=== PATIENT | female | born 1955 | race African-American/Black ===

== ENCOUNTER 2016-12-06 18:06 | Inpatient (IN) | payer MEDICARE ==
[~2016-12-06] VITALS: Ht 165.1 cm; Wt 81.0 kg
[~2016-12-06 18:06] MED LIST: BAYER CHEWABLE81 MG PO; COREG12.5 MG PO; HYDROCODONE-APA1 TAB PO; NORVASC10 MG PO; RENVELA800 MG PO; ZOCOR10 MG PO
--- NOTE | 2016-12-06 19:03 | NUR ---
1845-TO ROOM IN WHEELCHAIR A DIRECT ADMIT WITH C. DIFF. PLACED IN ENTERIC ISOLATION. LEFT AVF WITH + BRUIT AND THRILL. DIALYSIS ON T, TH, SAT. CLEANED UP FROM LOOSE STOOL. WILL ADMIT.
[2016-12-06] MEDS ORDERED: METOPROLOL TART25 MG PO (19:08)
[2016-12-06] MEDS ORDERED: TUMS500 MG PO (19:09)
[2016-12-06] MEDS ORDERED: FLAGYL500 MG PO (19:10)
[2016-12-06 19:17] LABS: BASOPHILS 0.4 % (0.0-2.0); EOSINOPHILS 0.9 % (0-7); HEMATOCRIT 31.8 % (36.0-48.0); HEMOGLOBIN 11.5 g/dL (12-16); IMMATURE GRANULOCYTES 0.5 % (0-5); MCH 26.3 pg (26.0-34.0); MCHC 36.2 g/dL (31.0-37.0); MCV 72.6 fL (80.0-100.0); MONOCYTES 13.1 % (2-11); NEUTROPHILS 72.1 % (40-80); RBC 4.38 10x6/uL (4.00-5.40); RDW 14.2 % (11.5-14.5); WBC 11.4 10x3/uL (4.8-10.8)
[2016-12-06 19:31] LABS: PLATELET COUNT 347 10x3/uL (130-400)
[2016-12-06 19:40] LABS: ALBUMIN 2.7 g/dL (3.4-5.0); ANION GAP 20.5 mmol/L (8-16); BILIRUBIN - TOTAL 0.51 mg/dL (0.2-1.3); CALCIUM 8.3 mg/dL (8.5-10.1); CARBON DIOXIDE 21.3 mmol/L (21.0-32.0); MAGNESIUM - SERUM 2.5 mg/dL (1.8-2.4); POTASSIUM - SERUM 3.8 mmol/L (3.5-5.1); PROTEIN - SERUM 7.1 g/dL (6.4-8.2)
[2016-12-06 19:53] LABS: PHOSPHOROUS 9.2 mg/dL (2.5-4.9)
[2016-12-07 00:41] VITALS: BP 147/68; BMI 28.2
--- NOTE | 2016-12-07 02:49 | NUR ---
NURSE ROUNDS 21:00 12/06/16 - PT JUST ARRIVED A DIRECT ADMIT, AWAKE, ALERT, ORIENTED. PT IS STILL HAVING UNCONTROLLED DIARRHEA R/T C-DIFF INFECTION. PT DURING PTS HEALTH HX, PT DID STATE THAT SHE HAS BEEN EXPOSED TO HEPATITIS AND HAS BUILT IMMUNITY. PT ALSO STATES SHE WAS RECENTLY TX FOR TB, DID TAKE RIFAMPIN X 4 MONTHS AND COMPLETED HER TX IN 06/05. PT DENIES ANY ACUTE NEEDS. I CALLED SUNITA MENEZES, NURSE PRACTIONER PHOTOENGRAVING APPRENTICE FOR RENAL, WHO WANTED TO HOLD ALL HOME MEDICATIONS UNTIL FURTHER EVALUATION. IV SITED TO RIGHT FOREARM, PT DENIES ANY ACUTE NEEDS. CONTINUE TO MONITOR CLOSELY.
--- NOTE | 2016-12-07 04:21 | NUR ---
PT HAS HAD SEVERAL BOUTS OF BOWEL INCONTINENCE, REMAINS IN NO ACUTE DISTRESS. CONTINUE TO MONITOR CLOSELY.
--- NOTE | 2016-12-07 07:43 | NUR ---
AM ROUNDING- RECEIVED REPORT FROM DIETARY COOK NURSE LEOBARDO BLANDON. PT IS CURRENTLY LAYING IN BED WITH HOB ELEVATED AT 40 DEGREES WITH EYES OPEN RESTING. IN ENTERIC ISOLATION FOR C.DIFF. LEFT ARM RESERVE FOR AVF. 22G IV SEEN TO RIGHT FOREARM WITH 1/2 NS RUNNING AT KVO (20CC/HR). ON 02 AT 2L VIA NC. NO MONITOR. PT IS VERY WEAK. PT STATES TURNER LOU IS FINDING HER A FAN. NO NEED AT CURRENT TIME. WILL CONTINUE TO MONITOR AND CONTINUE WITH PLAN OF CARE.
[2016-12-07 07:55] VITALS: BP 131/53
[2016-12-07 11:29] VITALS: BP 140/57
[2016-12-07 13:10] VITALS: Ht 165.1 cm; Wt 81.0 kg
--- NOTE | 2016-12-07 13:24 | NUR ---
DIALYSIS COORDINATOR: PATHWAYS: [facility]. GERONIMO FERNANDEZ.
[2016-12-07 15:15] VITALS: BP 162/83
--- NOTE | 2016-12-07 16:26 | NUR ---
SCD'S ON BILATERAL LE
--- NOTE | 2016-12-07 18:28 | NUR ---
PT LAYING IN BED ON BACK WITH EYES OPEN RESTING. PT IS INCONTINENT OF STOOL (IN ISOLATION FOR C.DIFF). CHANGED PTS LINEN. WILL CONTINUE TO MONITOR.
[2016-12-07 19:00] VITALS: BP 182/77
--- NOTE | 2016-12-07 20:11 | NUR ---
ROUNDS, PT BEING GIVEN BATH PER CNAS X 2. NO DISTRESS. CPOC. SEE ASSESSMENT.
--- NOTE | 2016-12-07 21:30 | NUR ---
RESTING. AWAKENED EASILY. TOOK PM MEDS, QUESTRAN/FLAGYL. VERY PLEASANT AND COOPERATIVE. KNOWLEDGEABLE ABOUT DISEASE PROCESSES.
[2016-12-08] VITALS: BP 155/72
--- NOTE | 2016-12-08 00:24 | NUR ---
TELEMETRY STARTED. . PT IS CONFUSED. DISORIENTED TO PLACE/SITUATION. SETTLED HIM INTO HIS BED AND TURNED ON BED ALARM. WILL MONITOR.
--- NOTE | 2016-12-08 00:31 | NUR ---
PT RESTING IN BED. SLOW RISE BEING NOTED IN TEMP. EARLIER 99.0 AND NOW 100.0. SPOKE WITH PATIENT THAT IF THE NEXT CHECK IS EVEN HIGHER, WILL OBTAIN BLOOD CULTURES. PT VERY UNDERSTANDING. WILL MONITOR.
[2016-12-08 04:00] VITALS: BP 185/81
--- NOTE | 2016-12-08 07:15 | NUR ---
RECEIVED PATIENT LAYING IN BED. ALERT AND ORIENTED. PATIENT ON CONTACT ISOLATION FOR C DIFF. CONTINUES HAVING FREQUENT LOOSE STOOLS. BRUIT AND THRILL PRESENT PER LEFT AV FISTULA. IV 1/2 NS INFUSING AT KVO PE RIGHT FOREARM. NO C/O VOICED. DENIES NEEDS. CALL LIGHT WITHIN REACH.
[2016-12-08 08:15] VITALS: BP 147/62
--- NOTE | 2016-12-08 10:05 | NUR ---
Nutrition follow-up: Diet advanced to renal ADA with Nepro BID PO intake 100% of some meals Labs reviewed +BM loose PO intake is good at this time. RDN following.
[2016-12-08 11:10] LABS: BASOPHILS 0.5 % (0.0-2.0); EOSINOPHILS 1.6 % (0-7); HEMOGLOBIN 10.6 g/dL (12-16); IMMATURE GRANULOCYTES 0.7 % (0-5); LYMPHOCYTES 22.5 % (15-50); MCH 25.8 pg (26.0-34.0); MCHC 35.3 g/dL (31.0-37.0); MEAN PLATELET VOLUME 10.1 fL (7.4-10.4); MONOCYTES 9.4 % (2-11); NEUTROPHILS 65.3 % (40-80); PLATELET COUNT 334 10x3/uL (130-400); RBC 4.11 10x6/uL (4.00-5.40); RDW 14.3 % (11.5-14.5); WBC 10.3 10x3/uL (4.8-10.8)
[2016-12-08 11:32] LABS: ANION GAP 15.3 mmol/L (8-16); CALCIUM 7.5 mg/dL (8.5-10.1); CARBON DIOXIDE 25.1 mmol/L (21.0-32.0); POTASSIUM - SERUM 3.4 mmol/L (3.5-5.1)
[2016-12-08 11:33] LABS: CREATININE - SERUM 12.7 mg/dL (0.6-1.3)
[2016-12-08 12:10] VITALS: BP 152/72
--- NOTE | 2016-12-08 13:04 | NUR ---
C/O DRY NON-PRODUCTIVE COUGH. PRN ROBITUSSIN WITH CODIENE ADMINISTERED PER ORDERS.
--- NOTE | 2016-12-08 14:15 | NUR ---
ASSISTED TO BATHROOM. CONTINUES WITH LOOSE STOOLS.
[2016-12-08 16:00] VITALS: BP 146/67
--- NOTE | 2016-12-08 20:00 | NUR ---
ROUNDS, PT RESTING AND WATCHING TV. ALERT/ORIENTED. O2 @ 2L/NC WITH NONLABORED RESPIRATIONS. SEE SHIFT ASSESSMENT. CPOC.
[2016-12-08 20:13] VITALS: BP 165/77
[2016-12-09 02:00] VITALS: BP 140/76
[2016-12-09 04:46] LABS: BASOPHILS 0.3 % (0.0-2.0); EOSINOPHILS 2.6 % (0-7); HEMATOCRIT 29.7 % (36.0-48.0); HEMOGLOBIN 10.5 g/dL (12-16); IMMATURE GRANULOCYTES 0.6 % (0-5); MCHC 35.4 g/dL (31.0-37.0); MCV 73.5 fL (80.0-100.0); MEAN PLATELET VOLUME 9.9 fL (7.4-10.4); MONOCYTES 8.3 % (2-11); NEUTROPHILS 68.2 % (40-80); PLATELET COUNT 350 10x3/uL (130-400); RBC 4.04 10x6/uL (4.00-5.40); RDW 14.2 % (11.5-14.5)
[2016-12-09 05:06] LABS: ANION GAP 13.4 mmol/L (8-16); CALCIUM 8.1 mg/dL (8.5-10.1); CARBON DIOXIDE 26.6 mmol/L (21.0-32.0); CREATININE - SERUM 14.1 mg/dL (0.6-1.3); PHOSPHOROUS 7.3 mg/dL (2.5-4.9)
--- NOTE | 2016-12-09 07:49 | NUR ---
AM ROUNDS - PT IN BED RECIEVING DYALISIS. 2L O2 VIA NC. LEFT LOWER FA WITH AVF. RESERVE LEFT ARM. SCDS ON. PT IS ON OSOLATION FOR C-DIFF. PT STATES SHE IS DOING BETTER AND HAD NO INCONTINENT EPISODE LAST NIGHT. RIGHT FA, SL. NO NEEDS AT THIS TIME. WILL CONTINUE TO MONITOR.
[2016-12-09 08:14] VITALS: BP 138/73
--- NOTE | 2016-12-09 09:51 | NUR ---
HELD DEVAN STEEN, WILL GIVE AFTER PRIETO.
--- NOTE | 2016-12-09 11:19 | NUR ---
Mrs. Gracia had bedside hemodialysis today via her left lower arm av fistula from 0750 until 1050. Average blood flow was 350 mls/minute. Net fluid removed was 2000 mls. Post vital signs were: B/P:153/73, HR:73, Temp:98.8, Resps:18. No problems.
[2016-12-09 13:14] VITALS: BP 158/74
[2016-12-09 16:52] VITALS: BP 160/79
--- NOTE | 2016-12-09 16:58 | NUR ---
Patient Name: JONATHAN MARQUEZ Admission Status: Elective Accout number: [id number] Admission Date: 12-06-2016 : 1955 Admission Diagnosis:DIARRHEA, UNSPECIFIED Attending: LARON Current LOS: 3 Anticipated DC Date: 12-12-2016 Planned Disposition: Home Primary Insurance: MEDICARE A & B Discharge Planning Comments: CM MET WITH PATIENT REGARDING D/C NEEDS AND PLANS. PATIENT STATED SHE LIVES ALONE BUT HER SON AND HER ARE IN TOUCH DAILY. PATIENTS SON WILL DRIVE PATIENT HOME AT DISCHARGE. PATIENT STATED SHE IS INDEPENDENT WITH HER CARE AND HAS A SHOWER CHAIR AT HOME AND GLUCOMETER AND SHE CHECKS SUGAR EVERY OTHER DAY. PATIENT HAS DIALYSIS ON [id number] AT [facility] IN [place]. PATIENT DOES NOT WANT HOME HEALTH AT THIS TIME AND HAS NO OTHER NEEDS AT THIS TIME FOR DISCHARGE. CM WILL CONTINUE TO FOLLOW PATIENT WITH D/C NEEDS AND PLANS. PCP DR. SMITH ([place]) [facility] ([place]) N[place] SHERIDAN [phone] Hose Coupling Joiner: Leanna Crowe Is the patient Alert and Oriented? Yes 0 * How many steps to enter\exit or inside your home? 1 FLIGHT 0 * PCP DR. SMITH IN [place] 0 * Pharmacy [facility] 0 * Preadmission Environment Home Alone 0 * ADLs Independent 0 * Equipment Glucometer Shower Chair 0 * List name and contact numbers for known caregivers / representatives who currently or will assist patient after discharge: N[place]IA SHERIDAN [phone] * Community resources currently utilized None 0 * Additional services required to return to the preadmission environment? Yes 0 * Can the patient safely return to the preadmission environment? Yes 0 * Has this patient been hospitalized within the prior 30 days at any hospital? No 0 Grand Total: 0
--- NOTE | 2016-12-09 17:43 | NUR ---
PT IN BED. STATES SHE IS FEELING BETTER AND HAD A "FORMED STOOL" TODAY.
[2016-12-09 19:00] VITALS: BP 157/72
--- NOTE | 2016-12-09 19:15 | NUR ---
AWAKE ALERT TALKING ON PHONE. DENIES PAIN OR ANY NEEDS. IN CONTACT ISOLATION FOR C-DIF. STATED LAST BM WAS SOFT FORMED. IV IN FA INTACT SL. SCD'S ARE ON. CALL LIGHT IN REACH.
--- NOTE | 2016-12-09 21:50 | NUR ---
ADMIN SCHED MEDS WITH SIPS OF WATER. REQUESTED LIGHTS OFF TO SLEEP.
[2016-12-10] VITALS: BP 166/71
--- NOTE | 2016-12-10 04:00 | NUR ---
AWAKE WATCHING TV. DENIES PAIN OR ANY NEEDS.
[2016-12-10 04:26] VITALS: BP 162/77
[2016-12-10 04:54] LABS: BASOPHILS 0.4 % (0-2); HEMATOCRIT 28.8 % (36.0-48.0); HEMOGLOBIN 10.1 g/dL (12-16); IMMATURE GRANULOCYTES 0.4 % (0-5); LYMPHOCYTES 21.9 % (15-50); MCH 25.9 pg (26.0-34.0); MCHC 35.1 g/dL (31.0-37.0); MCV 73.8 fL (80.0-100.0); MEAN PLATELET VOLUME 10.2 fL (7.4-10.4); MONOCYTES 11.3 % (2-11); PLATELET COUNT 350 10x3/uL (130-400); RDW 14.3 % (11.5-14.5); WBC 10.5 10x3/uL (4.8-10.8)
[2016-12-10 05:17] LABS: ANION GAP 12.1 mmol/L (8-16); CARBON DIOXIDE 28.4 mmol/L (21.0-32.0); PHOSPHOROUS 5.6 mg/dL (2.5-4.9); POTASSIUM - SERUM 3.5 mmol/L (3.5-5.1)
[2016-12-10 05:21] LABS: CREATININE - SERUM 9.6 mg/dL (0.6-1.3)
--- NOTE | 2016-12-10 07:45 | NUR ---
AM ROUNDING- RECEIVED REPORT FROM FARM EQUIPMENT MECHANIC APPRENTICE NURSE KWESI. PT IS CURRENTLY SITTING UP IN BED WITH EYES OPEN STATING SHE IS DOING MUCH BETTER. PT STATES SHE HAS NOT HAD DIARRHEA. IN ENTERIC ISOLATION FOR C.DIFF. RESERVE LEFT ARM FOR AVF (PT DIALYZED YESTERDAY). ON 02 AT 2L VIA NC. NO MONITOR. SCDS ARE ON. PT IS ALERT AND ORIENTED. NO NEED AT CURRENT TIME. WILL CONTINUE TO MONITOR AND CONTINUE WITH PLAN OF CARE.
[2016-12-10 07:59] VITALS: BP 183/85
[2016-12-10 12:40] VITALS: BP 163/70
--- NOTE | 2016-12-10 15:21 | NUR ---
WEANED PTS O2 DOWN TO 1L VIA NC ORDERED (WAS AT 2L). WILL MONITOR PT AND WEAN TOLERATED. WILL CONTINUE TO MONITOR.
[2016-12-10 15:40] VITALS: BP 146/69
--- NOTE | 2016-12-10 17:03 | NUR ---
PT IS CURRENTLY SITTING UP IN BED WITH EYES OPEN EATING DINNER. DENIES ANY NEED AT CURRENT TIME. WILL CONTINUE TO MONITOR.
[2016-12-10 20:00] VITALS: BP 174/72
--- NOTE | 2016-12-10 21:31 | NUR ---
INITIAL ROUNDS COMPLETED AT 1915 HRS. PT DENIED ANY DISCOMFORT. ASSESSMENT COMPLETED AT 1944 HRS. VSS. LAVF WITH GOOD BRUIT AND THRILL. IV TI RHADN SL. LUNGS DIMINISHED IN BASES BILAT. 02 1LNC. PM MEDS GIVEN. PT CURRENTLY RESTING WITH EYES CLOSED. RESP EVEN AND REGULAR. SR UP X2, CALL LIGHT WITHIN REACH.
[2016-12-11] VITALS: BP 144/63
--- NOTE | 2016-12-11 00:04 | NUR ---
PT RESTING WITH EYES CLOSED. RESP EVEN AND REGULAR. SR UP X2, CALL LIGHT WITHIN REACH.
--- NOTE | 2016-12-11 01:41 | NUR ---
PT RESTING WITH EYES CLOSED. RESP EVEN AND REGULAR. SR UP X2, CALL LIGHT WITHIN REACH.
[2016-12-11 04:33] LABS: BASOPHILS 0.7 % (0-2); EOSINOPHILS 3.8 % (0-7); HEMATOCRIT 29.1 % (36.0-48.0); IMMATURE GRANULOCYTES 0.5 % (0-5); LYMPHOCYTES 23.5 % (15-50); MCH 25.6 pg (26.0-34.0); MCHC 34.4 g/dL (31.0-37.0); MCV 74.4 fL (80.0-100.0); MEAN PLATELET VOLUME 10.3 fL (7.4-10.4); MONOCYTES 9.4 % (2-11); NEUTROPHILS 62.1 % (40-80); PLATELET COUNT 391 10x3/uL (130-400); RBC 3.91 10x6/uL (4.00-5.40); RDW 14.4 % (11.5-14.5)
[2016-12-11 04:42] LABS: ANION GAP 13.5 mmol/L (8-16); CALCIUM 8.1 mg/dL (8.5-10.1); CARBON DIOXIDE 26.3 mmol/L (21.0-32.0); CREATININE - SERUM 10.9 mg/dL (0.6-1.3); PHOSPHOROUS 5.6 mg/dL (2.5-4.9); POTASSIUM - SERUM 3.8 mmol/L (3.5-5.1)
--- NOTE | 2016-12-11 05:00 | NUR ---
PT AWAKE; DENIES ANY DISCOMFORT. WILL CONTINUE TO MONITOR.
--- NOTE | 2016-12-11 06:06 | NUR ---
VSS THROUGHOUT NIGHT. PT STATES NORCO HELPED CONTROL PAIN. NEEDS MET;WILL CONTINUE TO MONITOR.
--- NOTE | 2016-12-11 06:09 | NUR ---
VSS THROUGHOUT NIGHT. PT DENIED ANY DISCOMFORT. O2 SAT 88% ON RA. 92% ON 1LNC. NEEDS MET;WILL CONTINUE TO MONITOR.
--- NOTE | 2016-12-11 07:00 | NUR ---
PT LAYING TO RIGHT SIDE SLEEPING NO S/S DISTRESS NOTED WILL CONT TO MONITOR
[2016-12-11 08:10] VITALS: BP 151/68
[2016-12-11 11:49] VITALS: BP 154/67
--- NOTE | 2016-12-11 15:40 | NUR ---
PT HAS NOT HAD DIARRHEA IN X3 DAYS. POLICY AND PROCEDURE SAYS TO TAKE OFF ISOLATION AFTER DIARRHEA IS COMPLETE IN CDIFF PTS. PT IS NO LONGER HAVING DIARRHEA. REMOVING FROM ISOLATION PRECAUTIONS
[2016-12-11 16:14] VITALS: BP 142/64
--- NOTE | 2016-12-11 16:52 | NUR ---
PT SITTING UP IN BED TALKING ON THE PHONE AND EATING DINNER DENIES NEEDS WILL CONT TO MONITOR
[2016-12-11 20:00] VITALS: BP 156/70
--- NOTE | 2016-12-11 22:26 | NUR ---
INITIAL ROUNDS COMPLETED AT 1915 HRS. PT DENIED ANY DISCOMFORT. ASSESSMENT COMPLETED AT 1935 HRS. VSS. IV TO R HAND SL. LAVF WITH GOOD BRUIT AND THRILL. O2 1LNC. LUNGS ESSENTIALLY CTA. ALERT AND ORIENTED TO PERSON, PLACE AND TIME. PM MEDS GIVEN PER ORDERS. PT STATED HAD FORMED BM THIS PM. PT CURRENTLY RESTING WITH EYES CLOSED. RESP EVEN AND REGULAR. SR UP X2, CALL LIGHT WITHIN REACH.
[2016-12-12] VITALS: BP 145/67
--- NOTE | 2016-12-12 00:06 | NUR ---
PT RESTING WITH EYES CLOSED. RESP EVEN AND REGULAR. SR UP X2, CALL LIGHT WITHIN REACH.
--- NOTE | 2016-12-12 02:09 | NUR ---
PT RESTING WITH EYES CLOSED. RESP EVEN AND REGULAR. SR UP X2, CALL LIGHT WITHIN REACH.
--- NOTE | 2016-12-12 04:31 | NUR ---
PT AWAKE; DENIES ANY DISCOMFORT. WILL CONTINUE TO MONITOR.
[2016-12-12 05:00] LABS: BASOPHILS 0.5 % (0-2); EOSINOPHILS 3.2 % (0-7); HEMATOCRIT 27.6 % (36.0-48.0); HEMOGLOBIN 9.7 g/dL (12-16); IMMATURE GRANULOCYTES 0.3 % (0-5); MCH 25.7 pg (26.0-34.0); MCHC 35.1 g/dL (31.0-37.0); MONOCYTES 8.9 % (2-11); NEUTROPHILS 65.1 % (40-80); PLATELET COUNT 377 10x3/uL (130-400); RBC 3.78 10x6/uL (4.00-5.40); RDW 14.6 % (11.5-14.5); WBC 9.9 10x3/uL (4.8-10.8)
[2016-12-12 05:35] LABS: ANION GAP 17.6 mmol/L (8-16); CALCIUM 8.3 mg/dL (8.5-10.1); CARBON DIOXIDE 23.6 mmol/L (21.0-32.0); CREATININE - SERUM 12.4 mg/dL (0.6-1.3); PHOSPHOROUS 6.1 mg/dL (2.5-4.9); POTASSIUM - SERUM 4.2 mmol/L (3.5-5.1)
[2016-12-12 05:49] VITALS: BP 149/66
--- NOTE | 2016-12-12 06:06 | NUR ---
VSS THROUGHOUT NIGHT. PT DENIED ANY DISCOMFORT. NEEDS MET; WILL CONTINUE TO MONITOR.
[2016-12-12 08:00] VITALS: BP 155/55
[2016-12-12] MEDS ORDERED: FEXOFENADINE HC60 MG PO (09:10)
[2016-12-12] MEDS ORDERED: FLAGYL500 MG PO (09:11)
[2016-12-12] MEDS ORDERED: VANCOMYCIN250 MG/51 PO (09:12)
[2016-12-12] MEDS ORDERED: FLORANEX / LACT1 TAB PO (09:13)
--- NOTE | 2016-12-12 10:51 | NUR ---
Patient Name: JONATHAN MARQUEZ Encounter No: [id number] : 1955 Primary Insurance: MEDICARE A & B Anticipated DC Date: 12-12-2016 Planned Disposition: Home DCP follow-up note: CM MET WITH PT IN ROOM TO DISCUSS DISCHARGE NEEDS AND PLANNING. CM DISCUSSED AVAILABILITY OF HOME HEALTH, REHAB SERVICES AND MEDICAL EQUIPMENT. PT DENIES DISCHARGE NEEDS. FAMILY TO TRANSPORT HOME AT DISCHARGE. PT REPORTS SHE WILL GO TO HER REGULARLY SCHEDULED DIALYISIS UNIT TOMORROW MORNING. IMPORTANT MESSAGE FROM [employer] PROVIDED AND EXPLAINED. Giles Aj, CASE MANAGEMENT
--- NOTE | 2016-12-12 12:29 | NUR ---
ALERT AND ORIENTED X4. DISCHARGE INSTRUCTIONS GIVEN VERBALLY AND WRITTEN. DISCHARGE PRESCRIPTIONS SENT TO [facility] IN [facility]. ORAL VANC SENT TO [facility]. DISCHARGE PAPERS SIGNED ON CHART. DC RT HAND IV TIP INTACT. ESCORT TO RIDE VIA WHEELCHAIR. REMAINS FREE FROM INJURY.
== END 2016-12-12 12:32 | disposition home or self-care (01) | DRG 371 ==
LOC: D.M2 18:06
PROVIDERS: Internal Medicine Nephrology; ADMIT Internal Medicine Nephrology
PROC: 5A1D60Z (ICD-10-PCS; principal; 2016-12-07)
DX: A04.7 Enterocolitis due to Clostridium difficile (principal); N18.6 End stage renal disease; I13.2 Hypertensive heart and chronic kidney disease with heart failure and with stage 5 chronic kidney disease, or end stage renal disease; R18.8 Other ascites; E11.22 Type 2 diabetes mellitus with diabetic chronic kidney disease; I50.9 Heart failure, unspecified; Z99.2 Dependence on renal dialysis; E86.0 Dehydration; R14.0 Abdominal distension (gaseous)

== ENCOUNTER 2016-12-16 12:32 | Inpatient (IN) | payer MEDICARE ==
[~2016-12-16] VITALS: Ht 165.1 cm; Wt 70.1 kg
[~2016-12-16 12:32] MED LIST changes: +FEXOFENADINE HC60 MG PO; +FLAGYL500 MG PO; +FLORANEX / LACT1 TAB PO; +METOPROLOL TART25 MG PO; +TUMS500 MG PO; +VANCOMYCIN250 MG/51 PO
[2016-12-16 14:01] LABS: BASOPHILS 1.2 % (0-2); EOSINOPHILS 6.8 % (0-7); IMMATURE GRANULOCYTES 0.2 % (0-5); LYMPHOCYTES 37.2 % (15-50); MCHC 34.5 g/dL (31.0-37.0); MCV 75.5 fL (80.0-100.0); MEAN PLATELET VOLUME 10.1 fL (7.4-10.4); MONOCYTES 11.5 % (2-11); NEUTROPHILS 43.1 % (40-80); PLATELET COUNT 360 10x3/uL (130-400); RBC 3.84 10x6/uL (4.00-5.40); RDW 15.5 % (11.5-14.5); WBC 8.4 10x3/uL (4.8-10.8)
[2016-12-16 14:17] LABS: ALBUMIN 2.9 g/dL (3.4-5.0); ANION GAP 11.9 mmol/L (8-16); BILIRUBIN - TOTAL 0.52 mg/dL (0.2-1.3); CALCIUM 8.7 mg/dL (8.5-10.1); CARBON DIOXIDE 26.5 mmol/L (21.0-32.0); CREATININE - SERUM 7.8 mg/dL (0.6-1.3); POTASSIUM - SERUM 4.4 mmol/L (3.5-5.1); PROTEIN - SERUM 7.7 g/dL (6.4-8.2)
[2016-12-16] MEDS ORDERED: FLAGYL500 MG PO (19:05)
[2016-12-16] MEDS ORDERED: CHOLESTYRAMIN4 G/PK1 PO (19:07)
[2016-12-16] MEDS ORDERED: CALMOSEPTINE OI71 GM (19:11)
[2016-12-17 05:00] LABS: BASOPHILS 1.8 % (0-2); EOSINOPHILS 7.4 % (0-7); HEMATOCRIT 26.3 % (36.0-48.0); HEMOGLOBIN 8.9 g/dL (12-16); IMMATURE GRANULOCYTES 0.4 % (0-5); MCH 25.8 pg (26.0-34.0); MCHC 33.8 g/dL (31.0-37.0); MCV 76.2 fL (80.0-100.0); MEAN PLATELET VOLUME 9.8 fL (7.4-10.4); MONOCYTES 13.7 % (2-11); NEUTROPHILS 43.7 % (40-80); PLATELET COUNT 319 10x3/uL (130-400); RBC 3.45 10x6/uL (4.00-5.40); RDW 15.5 % (11.5-14.5); WBC 7.8 10x3/uL (4.8-10.8)
[2016-12-17 05:25] LABS: ANION GAP 16.6 mmol/L (8-16); CALCIUM 8.2 mg/dL (8.5-10.1); CARBON DIOXIDE 21.4 mmol/L (21.0-32.0); CREATININE - SERUM 8.4 mg/dL (0.6-1.3); PHOSPHOROUS 5.2 mg/dL (2.5-4.9)
[2016-12-17 10:29] VITALS: Ht 165.1 cm; Wt 70.1 kg
[2016-12-17 12:03] VITALS: BP 146/66
[2016-12-17 16:51] VITALS: BP 143/70
[2016-12-17 20:00] VITALS: BP 182/81
[2016-12-18] VITALS (7 sets, daily range): BP systolic 142–178; BP diastolic 60–77
[2016-12-18 04:57] LABS: BASOPHILS 1.6 % (0-2); EOSINOPHILS 9.1 % (0-7); HEMOGLOBIN 8.6 g/dL (12-16); IMMATURE GRANULOCYTES 0.2 % (0-5); LYMPHOCYTES 33.5 % (15-50); MCH 25.7 pg (26.0-34.0); MCHC 34.4 g/dL (31.0-37.0); MCV 74.6 fL (80.0-100.0); MEAN PLATELET VOLUME 10.1 fL (7.4-10.4); MONOCYTES 12.1 % (2-11); NEUTROPHILS 43.5 % (40-80); PLATELET COUNT 284 10x3/uL (130-400); RBC 3.35 10x6/uL (4.00-5.40); RDW 15.4 % (11.5-14.5); WBC 6.4 10x3/uL (4.8-10.8)
[2016-12-18 05:23] LABS: ANION GAP 12.4 mmol/L (8-16); POTASSIUM - SERUM 3.4 mmol/L (3.5-5.1)
[2016-12-18 05:24] LABS: CREATININE - SERUM 5.6 mg/dL (0.6-1.3); PHOSPHOROUS 3.6 mg/dL (2.5-4.9)
[2016-12-19 03:23] VITALS: BP 163/67
[2016-12-19 04:55] LABS: BASOPHILS 1.8 % (0-2); EOSINOPHILS 10.3 % (0-7); HEMATOCRIT 27.9 % (36.0-48.0); HEMOGLOBIN 9.4 g/dL (12-16); IMMATURE GRANULOCYTES 0.3 % (0-5); LYMPHOCYTES 37.3 % (15-50); MCH 25.3 pg (26.0-34.0); MCHC 33.7 g/dL (31.0-37.0); MCV 75.2 fL (80.0-100.0); MEAN PLATELET VOLUME 10.3 fL (7.4-10.4); MONOCYTES 13.9 % (2-11); NEUTROPHILS 36.4 % (40-80); PLATELET COUNT 302 10x3/uL (130-400); RBC 3.71 10x6/uL (4.00-5.40); RDW 15.5 % (11.5-14.5); WBC 6.8 10x3/uL (4.8-10.8)
[2016-12-19 05:10] LABS: CALCIUM 8.5 mg/dL (8.5-10.1); CARBON DIOXIDE 27.1 mmol/L (21.0-32.0); CREATININE - SERUM 7.5 mg/dL (0.6-1.3); PHOSPHOROUS 4.4 mg/dL (2.5-4.9); POTASSIUM - SERUM 4.1 mmol/L (3.5-5.1)
[2016-12-19 08:45] VITALS: BP 174/71
[2016-12-19 12:47] VITALS: BP 166/81
[2016-12-19 17:26] VITALS: BP 157/92
[2016-12-19 20:10] VITALS: BP 149/68
[2016-12-20] VITALS (7 sets, daily range): BP systolic 151–185; BP diastolic 60–81
[2016-12-20 05:58] LABS: BASOPHILS 2.2 % (0-2); EOSINOPHILS 13.4 % (0-7); HEMATOCRIT 25.4 % (36.0-48.0); HEMOGLOBIN 8.8 g/dL (12-16); IMMATURE GRANULOCYTES 0.3 % (0-5); LYMPHOCYTES 33.2 % (15-50); MCH 26.1 pg (26.0-34.0); MCHC 34.6 g/dL (31.0-37.0); MCV 75.4 fL (80.0-100.0); MEAN PLATELET VOLUME 9.7 fL (7.4-10.4); MONOCYTES 11.2 % (2-11); NEUTROPHILS 39.7 % (40-80); PLATELET COUNT 258 10x3/uL (130-400); RBC 3.37 10x6/uL (4.00-5.40); RDW 15.9 % (11.5-14.5); WBC 5.9 10x3/uL (4.8-10.8)
[2016-12-20 06:18] LABS: ANION GAP 13.8 mmol/L (8-16); CALCIUM 8.2 mg/dL (8.5-10.1); CARBON DIOXIDE 24.5 mmol/L (21.0-32.0); CREATININE - SERUM 8.8 mg/dL (0.6-1.3); PHOSPHOROUS 4.9 mg/dL (2.5-4.9); POTASSIUM - SERUM 4.3 mmol/L (3.5-5.1)
[2016-12-21 03:42] VITALS: BP 116/74
[2016-12-21 05:26] LABS: BASOPHILS 1.6 % (0-2); EOSINOPHILS 14.1 % (0-7); HEMATOCRIT 24.7 % (36.0-48.0); HEMOGLOBIN 8.5 g/dL (12-16); IMMATURE GRANULOCYTES 0.2 % (0-5); LYMPHOCYTES 41.8 % (15-50); MCH 25.8 pg (26.0-34.0); MCHC 34.4 g/dL (31.0-37.0); MCV 74.8 fL (80.0-100.0); MEAN PLATELET VOLUME 10.7 fL (7.4-10.4); MONOCYTES 13.5 % (2-11); NEUTROPHILS 28.8 % (40-80); PLATELET COUNT 232 10x3/uL (130-400); RDW 15.7 % (11.5-14.5); WBC 6.4 10x3/uL (4.8-10.8)
[2016-12-21 05:49] LABS: ANION GAP 9.9 mmol/L (8-16); CALCIUM 8.2 mg/dL (8.5-10.1); CARBON DIOXIDE 29.2 mmol/L (21.0-32.0); CREATININE - SERUM 7.4 mg/dL (0.6-1.3); PHOSPHOROUS 4.1 mg/dL (2.5-4.9); POTASSIUM - SERUM 4.1 mmol/L (3.5-5.1)
[2016-12-21 08:53] VITALS: BP 174/80
[2016-12-21 12:48] VITALS: BP 177/78
[2016-12-21 16:21] VITALS: BP 179/74
[2016-12-21 20:00] VITALS: BP 176/78
[2016-12-21 23:00] VITALS: BP 159/76
[2016-12-22 05:10] VITALS: BP 166/73
[2016-12-22 07:44] VITALS: BP 155/60
[2016-12-22 12:51] VITALS: BP 166/74
[2016-12-22 16:26] VITALS: BP 162/72
[2016-12-22 19:00] VITALS: BP 178/76
[2016-12-22 23:00] VITALS: BP 161/69
[2016-12-23 05:46] LABS: BASOPHILS 2.2 % (0-2); EOSINOPHILS 12.1 % (0-7); HEMATOCRIT 26.2 % (36.0-48.0); IMMATURE GRANULOCYTES 0.1 % (0-5); LYMPHOCYTES 47.8 % (15-50); MCHC 34.4 g/dL (31.0-37.0); MCV 75.7 fL (80.0-100.0); MEAN PLATELET VOLUME 10.1 fL (7.4-10.4); MONOCYTES 11.2 % (2-11); NEUTROPHILS 26.6 % (40-80); PLATELET COUNT 227 10x3/uL (130-400); RBC 3.46 10x6/uL (4.00-5.40); RDW 16.2 % (11.5-14.5); WBC 6.9 10x3/uL (4.8-10.8)
[2016-12-23 06:05] LABS: ANION GAP 11.2 mmol/L (8-16); CALCIUM 8.5 mg/dL (8.5-10.1); CARBON DIOXIDE 29.8 mmol/L (21.0-32.0); CREATININE - SERUM 6.5 mg/dL (0.6-1.3)
[2016-12-23 06:42] VITALS: BP 144/71
[2016-12-23 07:56] VITALS: BP 186/94
[2016-12-23 08:22] LABS: HEPATITIS C ANTIBODY <0.1 (0.0-0.9)
[2016-12-23 12:38] VITALS: BP 183/79
[2016-12-23 15:42] VITALS: BP 176/81
[2016-12-23 20:30] VITALS: BP 169/78
[2016-12-24 00:28] VITALS: BP 160/78
[2016-12-24 04:13] VITALS: BP 173/73
[2016-12-24 04:46] LABS: BASOPHILS 2.7 % (0-2); EOSINOPHILS 12.7 % (0-7); HEMATOCRIT 25.3 % (36.0-48.0); HEMOGLOBIN 8.6 g/dL (12-16); IMMATURE GRANULOCYTES 0.1 % (0-5); LYMPHOCYTES 46.5 % (15-50); MCV 76.4 fL (80.0-100.0); MEAN PLATELET VOLUME 10.4 fL (7.4-10.4); MONOCYTES 10.3 % (2-11); NEUTROPHILS 27.7 % (40-80); PLATELET COUNT 251 10x3/uL (130-400); RBC 3.31 10x6/uL (4.00-5.40); RDW 16.4 % (11.5-14.5); WBC 6.9 10x3/uL (4.8-10.8)
[2016-12-24 04:58] LABS: ANION GAP 9.9 mmol/L (8-16); CALCIUM 8.5 mg/dL (8.5-10.1); CARBON DIOXIDE 29.4 mmol/L (21.0-32.0); CREATININE - SERUM 8.1 mg/dL (0.6-1.3); PHOSPHOROUS 3.8 mg/dL (2.5-4.9); POTASSIUM - SERUM 4.3 mmol/L (3.5-5.1)
[2016-12-24 08:36] VITALS: BP 186/82
[2016-12-24 11:28] VITALS: BP 174/78
[2016-12-24 17:04] VITALS: BP 183/82
[2016-12-24 20:32] VITALS: BP 186/76
[2016-12-25] VITALS (8 sets, daily range): BP systolic 154–213; BP diastolic 70–100
[2016-12-25 04:36] LABS: BASOPHILS 1.9 % (0-2); EOSINOPHILS 12.6 % (0-7); HEMATOCRIT 25.7 % (36.0-48.0); HEMOGLOBIN 8.6 g/dL (12-16); IMMATURE GRANULOCYTES 0.2 % (0-5); LYMPHOCYTES 44.6 % (15-50); MCH 25.8 pg (26.0-34.0); MCHC 33.5 g/dL (31.0-37.0); MCV 77.2 fL (80.0-100.0); MEAN PLATELET VOLUME 9.7 fL (7.4-10.4); MONOCYTES 14.3 % (2-11); NEUTROPHILS 26.4 % (40-80); PLATELET COUNT 237 10x3/uL (130-400); RBC 3.33 10x6/uL (4.00-5.40); RDW 16.7 % (11.5-14.5); WBC 6.4 10x3/uL (4.8-10.8)
[2016-12-25 04:54] LABS: ANION GAP 9.6 mmol/L (8-16); CALCIUM 8.1 mg/dL (8.5-10.1); CARBON DIOXIDE 30.1 mmol/L (21.0-32.0); CREATININE - SERUM 6.2 mg/dL (0.6-1.3); PHOSPHOROUS 3.3 mg/dL (2.5-4.9); POTASSIUM - SERUM 4.7 mmol/L (3.5-5.1)
[2016-12-26 05:22] LABS: BASOPHILS 2.1 % (0-2); EOSINOPHILS 10.7 % (0-7); HEMATOCRIT 27.4 % (36.0-48.0); HEMOGLOBIN 9.4 g/dL (12-16); IMMATURE GRANULOCYTES 0.3 % (0-5); LYMPHOCYTES 42.4 % (15-50); MCH 26.3 pg (26.0-34.0); MCHC 34.3 g/dL (31.0-37.0); MCV 76.5 fL (80.0-100.0); MEAN PLATELET VOLUME 10.3 fL (7.4-10.4); MONOCYTES 12.2 % (2-11); NEUTROPHILS 32.3 % (40-80); PLATELET COUNT 283 10x3/uL (130-400); RBC 3.58 10x6/uL (4.00-5.40); RDW 17.2 % (11.5-14.5); WBC 7.3 10x3/uL (4.8-10.8)
[2016-12-26 05:50] LABS: CALCIUM 8.8 mg/dL (8.5-10.1); CARBON DIOXIDE 27.1 mmol/L (21.0-32.0); CREATININE - SERUM 7.9 mg/dL (0.6-1.3); PHOSPHOROUS 4.1 mg/dL (2.5-4.9); POTASSIUM - SERUM 5.1 mmol/L (3.5-5.1)
[2016-12-26 06:05] VITALS: BP 188/84
[2016-12-26 08:28] VITALS: BP 191/73
[2016-12-26 13:42] VITALS: BP 117/84
[2016-12-26 20:46] VITALS: BP 171/73
[2016-12-26 23:58] VITALS: BP 172/70
[2016-12-27 04:11] VITALS: BP 176/69
[2016-12-27 05:48] LABS: BASOPHILS 2.8 % (0-2); EOSINOPHILS 11.3 % (0-7); HEMATOCRIT 26.9 % (36.0-48.0); HEMOGLOBIN 9.2 g/dL (12-16); IMMATURE GRANULOCYTES 0.3 % (0-5); LYMPHOCYTES 44.5 % (15-50); MCH 26.2 pg (26.0-34.0); MCHC 34.2 g/dL (31.0-37.0); MCV 76.6 fL (80.0-100.0); MEAN PLATELET VOLUME 10.1 fL (7.4-10.4); MONOCYTES 13.5 % (2-11); NEUTROPHILS 27.6 % (40-80); PLATELET COUNT 287 10x3/uL (130-400); RBC 3.51 10x6/uL (4.00-5.40); RDW 17.4 % (11.5-14.5); WBC 6.1 10x3/uL (4.8-10.8)
[2016-12-27 06:35] LABS: ANION GAP 16.2 mmol/L (8-16); CALCIUM 8.3 mg/dL (8.5-10.1); CARBON DIOXIDE 24.9 mmol/L (21.0-32.0); CREATININE - SERUM 9.4 mg/dL (0.6-1.3); PHOSPHOROUS 4.5 mg/dL (2.5-4.9); POTASSIUM - SERUM 5.1 mmol/L (3.5-5.1)
[2016-12-27 21:06] VITALS: BP 141/67
[2016-12-28 01:32] VITALS: BP 170/69
[2016-12-28 04:16] VITALS: BP 191/79
[2016-12-28 05:52] LABS: EOSINOPHILS 9.6 % (0-7); HEMATOCRIT 27.6 % (36.0-48.0); HEMOGLOBIN 9.5 g/dL (12-16); IMMATURE GRANULOCYTES 0.2 % (0-5); LYMPHOCYTES 46.6 % (15-50); MCH 26.2 pg (26.0-34.0); MCHC 34.4 g/dL (31.0-37.0); MCV 76.2 fL (80.0-100.0); MEAN PLATELET VOLUME 10.3 fL (7.4-10.4); MONOCYTES 15.6 % (2-11); PLATELET COUNT 285 10x3/uL (130-400); RBC 3.62 10x6/uL (4.00-5.40); RDW 17.4 % (11.5-14.5); WBC 5.6 10x3/uL (4.8-10.8)
[2016-12-28 06:09] LABS: ANION GAP 11.8 mmol/L (8-16); CALCIUM 8.1 mg/dL (8.5-10.1); CARBON DIOXIDE 29.5 mmol/L (21.0-32.0); CREATININE - SERUM 7.5 mg/dL (0.6-1.3)
[2016-12-28 06:10] LABS: POTASSIUM - SERUM 4.3 mmol/L (3.5-5.1)
[2016-12-28 08:33] VITALS: BP 184/76
[2016-12-28 12:31] VITALS: BP 191/86
[2016-12-28 16:55] VITALS: BP 139/81
[2016-12-28 19:00] VITALS: BP 143/89
[2016-12-29 00:20] VITALS: BP 151/70
[2016-12-29 04:37] VITALS: BP 158/72
[2016-12-29 08:20] VITALS: BP 130/76
[2016-12-29 12:28] VITALS: BP 170/73
[2016-12-29 16:54] VITALS: BP 138/73
[2016-12-29 22:47] VITALS: BP 158/73
[2016-12-30 01:51] VITALS: BP 174/81
[2016-12-30 05:13] VITALS: BP 156/69
[2016-12-30 08:00] VITALS: BP 140/65
[2016-12-30 12:00] VITALS: BP 130/63
[2016-12-30 16:45] VITALS: BP 147/85
[2016-12-30 21:22] VITALS: BP 147/75
[2016-12-31 06:06] VITALS: BP 174/76
[2016-12-31 08:54] VITALS: BP 157/75
[2016-12-31 12:20] VITALS: BP 126/77
[2016-12-31 17:16] VITALS: BP 143/59
[2016-12-31 20:00] VITALS: BP 128/54
[2017-01-01] VITALS: BP 146/80
[2017-01-01 04:00] VITALS: BP 146/70
[2017-01-01 08:38] VITALS: BP 157/69
[2017-01-01 12:24] VITALS: BP 156/78
[2017-01-01 16:11] VITALS: BP 138/64
[2017-01-02] VITALS: BP 134/71
[2017-01-02 04:00] VITALS: BP 153/53
[2017-01-02 08:00] VITALS: BP 150/76
[2017-01-02] MEDS ORDERED: QUESTRAN PACK4 G/PKT PO (10:11)
[2017-01-02 11:46] VITALS: BP 143/76
== END 2017-01-02 12:48 | disposition home or self-care (01) | DRG 371 ==
LOC: D.ER 12:32 → OBSVTIME 17:57 → D.M2 17:57
PROVIDERS: Emergency Medicine; Internal Medicine Gastroenterology; ADMIT Internal Medicine Nephrology
PROC: 5A1D60Z (ICD-10-PCS; 2016-12-17)
PROC: 3E0H8GC Introduction of Other Therapeutic Substance into Lower GI, Via Natural or Artificial Opening Endoscopic (ICD-10-PCS; 2016-12-27)
PROC: 0DBE8ZX Excision of Large Intestine, Via Natural or Artificial Opening Endoscopic, Diagnostic (ICD-10-PCS; principal; 2016-12-27 11:30)
DX: A04.7 Enterocolitis due to Clostridium difficile (principal); N18.6 End stage renal disease; I13.2 Hypertensive heart and chronic kidney disease with heart failure and with stage 5 chronic kidney disease, or end stage renal disease; E11.22 Type 2 diabetes mellitus with diabetic chronic kidney disease; I50.9 Heart failure, unspecified; E83.39 Other disorders of phosphorus metabolism; K64.9 Unspecified hemorrhoids; D63.1 Anemia in chronic kidney disease